=== PATIENT | male | born 2005 | race African-American/Black ===

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

== ENCOUNTER 2025-07-19 13:33 | Emergency (ER) | payer BC ==
[2025-07-19 15:12] LABS: Hematocrit 59.2 % (42.0-52.0); Hemoglobin 19.6 g/dL (14.0-18.0); Mean Corpuscular Hemoglobin 27.3 pg (25.0-35.0); Mean Corpuscular Volume 82.5 fl (78.0-98.0); Platelet Count 402 10x3/uL (130-400); Red Blood Cell (RBC) Count Greater than 7.09 mill/uL (4.00-5.20); White Blood Cell (WBC) Count 22.0 10x3/uL (4.8-10.8)
[2025-07-19] MEDS ORDERED: NS 0.9% w/ 20 MEQ KCL 1,000 ML ONE (15:31)
[2025-07-19] MEDS ORDERED: INSULIN REGULAR IN 0.9 % NACL 100 ML ONE (15:31)
[2025-07-19 15:36] LABS: MDiff Complete? YES
[2025-07-19 15:38] LABS: ALT (SGPT) Less than 7 U/L (Less than 45); AST (SGOT) 6 U/L (11-34); Albumin 4.1 g/dL (3.1-4.5); Alkaline Phosphatase 127 U/L (50-130); BUN (Urea Nitrogen) 7 mg/dL (8.4-21.0); Bilirubin, Total 0.5 mg/dL (0.3-1.2); Calc. Creatinine Clearance 0 mL/min (70-130); Calcium 8.6 mg/dL (7.8-10.44); Chloride 111 mmol/L (98-107); Globulin 3.7 g/dL (2.4-3.5); Glucose 300 mg/dL (70-105); Magnesium 1.9 mg/dL (1.7-2.2); Potassium 3.8 mmol/L (3.5-5.1); Sodium 138 mmol/L (136-145)
[2025-07-19 15:39] LABS: Carbon Dioxide Less than 8 mmol/L (22-29)
[2025-07-19 15:56] LABS: Glucose, Urine (Dipstick) 500 mg/dL (Negative); Leukocyte Negative (Negative); Protein, Urine (Dipstick) 100 mg/dL (Neg-Trace); Specific Gravity, Urine Greater/Equal 1.030 (1.005-1.030)
[2025-07-19 15:59] LABS: Bacteria/HPF None Seen HPF (None Seen); CAUTI Indications for Culture Alt mental st,lethar; WBC/HPF None Seen HPF (0-3)
[2025-07-19 16:00] LABS: Urine Culture Reflex No No
[2025-07-22 13:50] LABS: Bicarbonate (HCO3v) 4.0 mmol/L (22.0-28.0); CO2 Tension (PvCO2) 15.5 mmHg (42.0-51.0); Calcium, Ionized 1.12 mmol/L (1.15-1.33); Chloride 120 mmol/L (98-107); Hemoglobin - Calc 15.4 g/dL (14.0-18.0); Potassium 4.6 mmol/L (3.5-5.1); Sodium 133 mmol/L (138-145); T. Carbon Dioxide Less than 5.0 mmol/L (22.0-28.0); vO2 Saturation-calc 76.7 % (60.0-85.0)
== END 2025-07-19 16:06 | disposition short-term general hospital (02) ==
LOC: BURERS 13:33
DX: E10.10 Type 1 diabetes mellitus with ketoacidosis without coma (principal); Z79.4 Long term (current) use of insulin
CPT/HCPCS: 36416; 80053; 81001; 82330; 82435; 82803; 83735; 84132; 84295; 85014; 85025; 93005; 96374; J1815; J3480